=== PATIENT | female | born 1980 | race Caucasian/White ===

== ENCOUNTER 2016-09-14 14:00 | Emergency (ER) | payer SELFPAY ==
[2016-09-14 14:09] VITALS: BP 108/85
--- NOTE | 2016-09-14 15:25 | UC ---
Eye Complaint HPI - HPI Summary HPI Summary: PATIENT PRESENTS TO WITH CC OF BILATERAL REDNESS, PURULENT DRAINAGE AND ITCHING X 2 DAYS. SHE BEGAN TO FEEL SYMPTOMS YESTERDAY, TOOK OUT HER CONTACTS, TOOK AN ANTIHISTAMINE AND USED WARM WASH CLOTHS OVER THE EYES. SHE AWOKE THIS MORNING WITH WORSENING DRAINAGE, ITCHING AND SLIGHT DISCOMFORT. SHE ALSO NOTES TO SINUS PRESSURE AND PAIN X 4 DAYS WHICH HAS NOT BEEN IMPROVING WITH NASAL SALINE SPRAYS. SHE DEVELOPS SINUSITIS YEARLY AND HAS PREVIOUSLY TAKEN ANTIBIOTICS FOR RELIEF. SHE DENIES FEVERS, SWEATS OR CHILLS. SHE IS OTHERWISE HEALTHY. SHE DENIES SICK CONTACTS. - History of Current Complaint Chief Complaint: UCEye Stated Complaint: EYE ISSUE Time Seen by Provider: 09/14/16 14:30 Hx Obtained From: Patient Hx Last Menstrual Period: iud ?: No Onset/Duration: Sudden Onset Timing: Constant Severity Initially: Moderate Severity Currently: Moderate Pain Intensity: 5 Pain Scale Used: 0-10 Numeric Location of Injury: Conjunctiva Character: Dull Aggravating Factor(s): Contact Lens Alleviating Factor(s): Nothing Associated Signs And Symptoms: Positive: Drainage (Purulent) - Risk Factors Penetrating Injury Risk Factor: Negative Globe Rupture Risk Factors: Negative Acute Glaucoma Risk Factors: Eye Inflammation Optic Artery Occlusion Risk Factors: Negative - Allergies/Home Medications Allergies/Adverse Reactions: Allergies Allergy/AdvReac Type Severity Reaction Status Date / Time No Known Allergies Allergy Verified 02/17/14 21:46 PMH/Surg Hx/FS Hx/Imm Hx Previously Healthy: Yes Endocrine History Of: Denies: Diabetes, Thyroid Disease Cardiovascular History Of: Denies: Cardiac Disorders, Hypertension Respiratory History Of: Denies: COPD, Asthma GI/ History Of: Denies: Ulcer - Surgical History Surgical History: None - Family History Known Family History: Positive: Unknown - Social History Occupation: Student Lives: With Family Alcohol Use: Occasionally Substance Use Type: None Smoking Status (MU): Light Every Day Tobacco Smoker Have You Smoked in the Last Year: No Review of Systems Constitutional: Negative Skin: Negative Eyes: Drainage, Eye Redness ENT: Nasal Discharge, Other - SINUS PRESSURE Respiratory: Negative Cardiovascular: Negative Neurovascular: Negative Musculoskeletal: Negative Neurological: Negative All Other Systems Reviewed And Are Negative: Yes Physical Exam Triage Information Reviewed: Yes Appearance: Well-Nourished, Ill-Appearing Vital Signs: Initial Vital Signs Temp 98 F 09/14/16 14:06 Pulse 105 09/14/16 14:06 Resp 18 09/14/16 14:06 BP 108/85 09/14/16 14:06 Pulse Ox 100 09/14/16 14:06 Vital Signs Reviewed: Yes Eyes: Positive: Conjunctiva Inflamed, Discharge - PURULENT ENT: Positive: Nasal congestion, Nasal drainage, Other: - PRESSURE AND DISCOMFORT ON PALPATION OVER MAXILLARY SINUS Neck exam: Normal Neck: Positive: Supple, No Lymphadenopathy Respiratory Exam: Normal Respiratory: Positive: Chest non-tender, Lungs clear Cardiovascular Exam: Normal Cardiovascular: Positive: RRR Neurological Exam: Normal Neurological: Positive: Alert Psychological: Positive: Normal Response To Family, Age Appropriate Behavior Skin Exam: Normal Eye Complaint Course/Dx - Course Course Of Treatment: BILATERAL CONJUNCTIVITIS WITH PURULENT DRAINAGE X 2 DAYS. MAXILLARY SINUS PRESSURE AND PAIN X 4 DAYS WITH LITTLE IMPROVEMENT WITH NASAL SALINE SPRAYS. PROVIDER ENCOURAGED NETI POT AND CONTIUATION OF SALINE SPRAYS. EDUCATED PATIENT ON ANTIBIOTIC USE AND OVERUSE. D/T PREVIOUS SINUS INFECTIONS AND PRESSURE AND PAIN OVER MAXILLARY SINUS, WILL GIVE AUGMENTIN X 5 DAYS. BILATERAL CONJUNCTIVITIS LIKELY BACTERIAL D/T DRAIANGE AND WILL PRESCRIBED CIPRO DROPS BECAUSE PATIENT IS A CONTACT LENS WEARER. SHE IS OK WITH PLAN AND OK FOR DISCHARGE. FOLLOW UP WITH PCP. DENIES FEVER, SWEATS OR CHILLS. PROBIOTIC RECOMMENDED ON OPPOSITE SCHEDULE OF ANTIBIOTIC TO PREVENT SECONDARY INFECTIONS. CONTINUE ON ANTIHISTAMINE. USE WARM WASH CLOTHS FOR DRAINAGE. - Differential Dx/Diagnosis Differential Diagnosis/HQI/PQRI: Conjunctivitis, Periorbital Cellulitis, Orbital Cellulitis Provider Diagnoses: BACTERIAL CONJUNCTIVITIS; SINUSITIS Discharge - Discharge Plan Condition: Stable Disposition: HOME Prescriptions: Amoxicillin/Clavulanate TAB* [Augmentin TAB 875*] 875 mg PO BID #10 tab Ciprofloxacin 0.3% OPTH.AMY* [Cipro 0.3% Opth*] 1 drop BOTH EYES SEE INSTRUCTIONS #1 btl Patient Education Materials: Conjunctivitis (ED) Referrals: No Primary Care Phys,NOPCP [Primary Care Provider] - Additional Instructions: YOU ARE CONTAGIOUS FOR 48 HOURS. WASH HANDS FREQUENTLY USE WARM WASH CLOTH IN THE MORNING AND BEFORE BED MAY USE A COLD WASH CLOTH DURING THE DAY CONTINUE WITH ALLERGY MEDICATION CONTINUE WITH NASAL SPRAYS OR USE NETI POT HUMIDIFIER IN THE HOME WILL HELP BREAK UP MUCOUS AND AID WITH CONGESTION USE ANTIBIOTICS PRESCRIBED. THROW AWAY CONTACTS. WHEN ANTIBIOTICS ARE COMPLETED, YOU MAY RESUME CONTACT USE WITH NEW SET. IF YOU DEVELOP AND VISUAL DISTURBANCES, OR SYMPTOMS ARE NOT IMPROVING WITH MEDICATION, COME BACK TO UC.
== END 2016-09-14 15:20 | disposition home or self-care (01) ==
LOC: UCEAST 14:00
DX: H10.33 Unspecified acute conjunctivitis, bilateral (principal); J32.9 Chronic sinusitis, unspecified; F17.210 Nicotine dependence, cigarettes, uncomplicated
CPT/HCPCS: 99211; G0463

== ENCOUNTER 2017-12-18 19:35 | Emergency (ER) | payer BC ==
--- NOTE | 2017-12-18 19:55 | UC ---
Throat Pain/Nasal Agustin HPI - HPI Summary HPI Summary: 37 yo female presents with sore throat. She tells me that she was feeling fine last night. This morning woke up with mild throat pain and felt scratchy. As the day progressed her sore throat intensified and her tonsils enlarged. She now has severe pain and has difficulty swallowing due to pain. 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 Denies fever, chills, SOB, chest pain, or rash. - History of Current Complaint Stated Complaint: DIFFICULTY SWALLOWING,SWOLLEN TONSILS Time Seen by Provider: 12/18/17 19:55 Hx Obtained From: Patient Hx Last Menstrual Period: iud Onset/Duration: Sudden Onset Severity: Moderate Pain Intensity: 5 Pain Scale Used: 0-10 Numeric - Allergies/Home Medications Allergies/Adverse Reactions: Allergies Allergy/AdvReac Type Severity Reaction Status Date / Time No Known Allergies Allergy Verified 12/18/17 20:08 PMH/Surg Hx/FS Hx/Imm Hx - Additional Past Medical History Additional PMH: None Previously Healthy: Yes - Surgical History Surgical History: None - Family History Known Family History: Positive: Unknown - Social History Occupation: Employed Full-time Lives: With Family Alcohol Use: Occasionally Substance Use Type: None Smoking Status (MU): Light Every Day Tobacco Smoker Have You Smoked in the Last Year: No Review of Systems Constitutional: Negative Skin: Negative Eyes: Negative ENT: Sore Throat Respiratory: Negative Cardiovascular: Negative Gastrointestinal: Negative Neurovascular: Negative Neurological: Negative Psychological: Negative All Other Systems Reviewed And Are Negative: Yes Physical Exam - Summary Physical Exam Summary: GENERAL: NAD. WDWN. No pain distress. SKIN: No rashes, sores, lesions, or open wounds. HEENT: Head: AT/NC Eyes: Conjunctiva clear without inflammation or discharge. Ears: Hearing grossly normal. TMs intact, no bulging, erythema, or edema. Nose: Nasal mucosa pink and moist. NTTP maxillary and frontal sinus. Throat: Posterior oropharynx moderate erythema and 3+ tonsillar enlargement. Moderate exudates on left tonsil. Uvula midline. No hoarse voice or muffled voice. NECK: Supple. Moderate TTP and tonsillar LAD. CHEST: CTAB. No r/r/w. No accessory muscle use. Breathing comfortably and in no distress. CV: RRR. Without m/r/g. Pulses intact. Cap refill <2seconds NEURO: Alert. CN II-XII grossly intact. PSYCH: Age appropriate behavior. Triage Information Reviewed: Yes Vital Signs: Vital Signs: Temp Pulse Resp BP Pulse Ox 98 F 86 18 140/71 97 12/18/17 20:08 12/18/17 20:08 12/18/17 20:08 12/18/17 20:08 12/18/17 20:08 Laboratory Tests 12/18/17 19:42 Group A Strep Rapid Positive A Vital Signs Reviewed: Yes Throat Pain/Nasal Course/Dx - Course Course Of Treatment: Strep positive. Given her sudden onset of symptms and degree of discomfort, she was given 1gm of ceftriaxone and 6mg of dexamethasone in the clinic. Rx for Augmentin and prednisone. Strongly advised pt that if she sees no improvement tomorrow or if her symptoms worsen - she should be evaluated in the ER. She was agreeable to this plan. - Differential Dx/Diagnosis Provider Diagnoses: Strep pharyngitis Discharge - Sign-Out/Discharge Documenting (check all that apply): Patient Departure - Discharge Plan Condition: Stable Disposition: HOME Prescriptions: Amoxicillin/Clavulanate TAB* [Augmentin TAB 875*] 875 mg PO BID #20 tab predniSONE TAB* [Deltasone 20 MG TAB*] 60 mg PO DAILY #15 tab Patient Education Materials: Strep Throat (DC) Referrals: Ernesto Diaz MD [Primary Care Provider] - Additional Instructions: If you develop a fever, shortness of breath, chest pain, new or worsening symptoms - please call your PCP or go to the ED. Your blood pressure was high at todays visit. Please see your primary provider within 4 weeks for recheck and re-evaluation. 1) If your symptoms worsen or do not improve by tomorrow evening - please go to the ED - Billing Disposition and Condition Condition: STABLE Disposition: Home
[2017-12-18] MEDS ORDERED: Dexamethasone TAB* 4 MG PO ONE (20:10)
[2017-12-18] MEDS ORDERED: cefTRIAXone VIAL(*) 1,000 MG VIAL IM ONE (20:11)
[2017-12-18] MEDS ORDERED: Lidocaine 1%* 5 ML VIAL INJ ONE (20:11)
[2017-12-18 20:13] VITALS: BP 140/71
== END 2017-12-18 20:50 | disposition home or self-care (01) ==
LOC: UCEAST 19:35
DX: J02.0 Streptococcal pharyngitis (principal); F17.200 Nicotine dependence, unspecified, uncomplicated
CPT/HCPCS: 87651; 96372; 99212; G0463; J0696; J8540

== ENCOUNTER 2018-04-15 17:54 | Emergency (ER) | payer BC ==
--- NOTE | 2018-04-15 19:34 | UC ---
Hand/Wrist HPI - HPI Summary HPI Summary: 37-year-old female comes to clinic with a chief complaint of right hand injury. Yesterday she fell off a piece of furniture and struck the ulnar aspect of her left hand. Had immediate pain primarily in the fifth finger but she also has pain in the fifth metacarpal. Pain is worse with movement of the finger. Keeping it dependent also causes more pain keeping it upright decreases the pain. She's been taking some ibuprofen that also helps with the pain. No weakness or numbness. - History Of Current Complaint Stated Complaint: HAND INJURY Time Seen by Provider: 04/15/18 19:22 Hx Last Menstrual Period: iud - Allergies/Home Medications Allergies/Adverse Reactions: Allergies Allergy/AdvReac Type Severity Reaction Status Date / Time No Known Allergies Allergy Verified 04/15/18 19:39 Home Medications: Home Medications Ibuprofen TAB* [Motrin TAB* 400 MG] 1 tab PO Q6HR PRN 04/15/18 [History Confirmed 04/15/18] PMH/Surg Hx/FS Hx/Imm Hx Previously Healthy: Yes - Surgical History Surgical History: None - Family History Known Family History: Positive: Unknown - Social History Alcohol Use: Occasionally Substance Use Type: None Smoking Status (MU): Light Every Day Tobacco Smoker Have You Smoked in the Last Year: No Review of Systems All Other Systems Reviewed And Are Negative: Yes Skin: Positive: Bruising - LEFT 5TH FINGER Eyes: Positive: Negative ENT: Positive: Negative Respiratory: Positive: Negative Cardiovascular: Positive: Negative Gastrointestinal: Positive: Negative Motor: Positive: Negative Neurovascular: Positive: Negative Musculoskeletal: Positive: Other: - SEE HPI Neurological: Positive: Negative Psychological: Positive: Negative Is Patient Immunocompromised?: No Physical Exam Triage Information Reviewed: Yes Appearance: Well-Appearing, No Pain Distress, Well-Nourished Vital Signs Reviewed: Yes Eye Exam: Normal Eyes: Positive: Conjunctiva Clear Neck exam: Normal Neck: Positive: Supple Respiratory: Positive: No respiratory distress Musculoskeletal: Positive: Other: - The left fifth finger is tender to palpation as is the left fifth metacarpal. There is decreased range of motion based on pain. As no obvious deformity. Normal capillary refill no sensation deficit. Neurological Exam: Normal Neurological: Positive: Alert Psychological Exam: Normal Skin: Positive: Other - ECCYMOSIS LEFT 5TH FINGER Hand/Wrist Course/Dx - Course Course Of Treatment: I discussed the x-rays with the patient. I do not see a fracture. Radiologist reading is pending. Nursing splinted left fourth and fifth fingers and included the MCP. Neurovascularly intact after splinting. Plan will be ibuprofen rests and immobilization. If not improving follow-up will be with orthopedics. - Differential Dx/Diagnosis Provider Diagnosis: Contusion of left hand, Sprain of left little finger Discharge - Sign-Out/Discharge Documenting (check all that apply): Patient Departure All imaging exams completed and their final reports reviewed: No - Discharge Plan Condition: Stable Disposition: HOME Patient Education Materials: Finger Sprain (ED), Contusion in Adults (ED) Referrals: Ernesto Diaz MD [Primary Care Provider] - Andrea Alanis MD [Medical Doctor] - Additional Instructions: FOLLOW UP WITH ORTHOPEDICS IF NOT COMPLETELY IMPROVED. GET RECHECKED FOR ANY WORSENING OF YOUR CONDITION OR QUESTIONS OR CONCERNS. - Billing Disposition and Condition Condition: STABLE Disposition: Home
[2018-04-15 19:38] VITALS: BP 143/80
[2018-04-15] MEDS ORDERED: Acetaminophen TAB* 325 MG PO ONE (20:08)
--- NOTE | 2018-04-16 10:37 | UC ---
- Progress Note Progress Note: Radiology report reviewed. No fracture or acute process. No change in management. Course/Dx - Diagnoses Provider Diagnoses: Contusion of left hand, Sprain of left little finger Discharge - Sign-Out/Discharge Documenting (check all that apply): Post-Discharge Follow Up All imaging exams completed and their final reports reviewed: Yes - Discharge Plan Condition: Stable Disposition: HOME Patient Education Materials: Contusion in Adults (ED), Finger Sprain (ED) Forms: *Work Release Referrals: Ernesto Diaz MD [Primary Care Provider] - Andrea Alanis MD [Medical Doctor] - Additional Instructions: FOLLOW UP WITH ORTHOPEDICS IF NOT COMPLETELY IMPROVED. GET RECHECKED FOR ANY WORSENING OF YOUR CONDITION OR QUESTIONS OR CONCERNS. - Billing Disposition and Condition Condition: STABLE Disposition: Home
== END 2018-04-15 20:30 | disposition home or self-care (01) ==
LOC: UCEAST 17:54
DX: S60.222A Contusion of left hand, initial encounter (principal); S63.617A Unspecified sprain of left little finger, initial encounter; F17.210 Nicotine dependence, cigarettes, uncomplicated; W08.XXXA Fall from other furniture, initial encounter; Y92.9 Unspecified place or not applicable
CPT/HCPCS: 99213; A9270-GY; G0463

== ENCOUNTER 2019-03-08 10:15 | Emergency (ER) | payer BC ==
--- NOTE | 2019-03-08 12:21 | UC ---
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 Pain worse with moving, bending, twisting. Had Prednisone at home - improved symptoms, however onyl a short course and returned after stopping medication. mild relief with OTCs- motrin. no other complaints. - History of Current Complaint Chief Complaint: UCBackPain Stated Complaint: BACK INJURY Time Seen by Provider: 03/08/19 11:51 Hx Obtained From: Patient Hx Last Menstrual Period: iud ?: No Onset/Duration: Sudden Onset, Lasting Days Timing: Constant Severity Initially: Severe Severity Currently: Moderate Pain Intensity: 8 Pain Scale Used: 0-10 Numeric Back Pain: Is Discrete @ - lower back Character: Sharp, Aching, Throbbing, Spasmodic, Stiffness Aggravating Factor(s): Lifting, Bending Alleviating Factor(s): Rest - difficulty finding comfortable position Associated Signs And Symptoms: Positive: Negative - Allergies/Home Medications Allergies/Adverse Reactions: Allergies Allergy/AdvReac Type Severity Reaction Status Date / Time No Known Allergies Allergy Verified 03/08/19 10:29 PMH/Surg Hx/FS Hx/Imm Hx Previously Healthy: Yes - Surgical History Surgical History: None - Family History Known Family History: Positive: Unknown, Non-Contributory - Social History Occupation: Employed Full-time - nurse Alcohol Use: Occasionally Substance Use Type: None Smoking Status (MU): Light Every Day Tobacco Smoker Have You Smoked in the Last Year: No Review of Systems All Other Systems Reviewed And Are Negative: Yes Constitutional: Positive: Negative Musculoskeletal: Positive: Arthralgia, Decreased ROM, Myalgia. Negative: Calf Tenderness, Edema Neurological: Positive: Negative Is Patient Immunocompromised?: No Physical Exam Triage Information Reviewed: Yes Appearance: Well-Appearing, Well-Nourished, Pain Distress - minimal at rest, moderate iwth movements Vital Signs: Initial Vital Signs Temp 97.3 F 03/08/19 10:25 Pulse 84 03/08/19 10:25 Resp 18 03/08/19 10:25 BP 156/101 03/08/19 10:25 Pulse Ox 100 03/08/19 10:25 Vital Signs Reviewed: Yes Eyes: Positive: Conjunctiva Clear ENT: Positive: Hearing grossly normal Musculoskeletal: Positive: Other: - Lower back- decreased ROM due to pain with FF. SIde to side intact, mild pain with extension. TTP over paraspinal muscles b/l lumbar spine, minimal SI joint tenderness. TP pulses 2+ b/l. neg homans b/l. no cervical , thoracic tenderness, full ROM cervical. Neurological: Positive: Alert, Muscle Tone Normal, Other: - patellar reflexes 2 + b/l Psychological Exam: Normal Skin Exam: Normal Back Pain Course/Dx - Course Course Of Treatment: Lower back strain: - Prednisone to decrease inflammation/ pain per taper, may stop if side effects too severe - Valium as needed fo muscle spasms at night - Percocet PRN for break through pain - Decrease movements/ no lifting, pulling/ pushing x 2-3 days to rest back. Gentle ROM exercises - Differential Dx/Diagnosis Differential Diagnosis/HQI/PQRI: Strain, Sprain Provider Diagnosis: Strain of tendon of lower back Discharge ED - Sign-Out/Discharge Documenting (check all that apply): Patient Departure All imaging exams completed and their final reports reviewed: No Studies - Discharge Plan Condition: Good Disposition: HOME Prescriptions: Diazepam TAB(*) [Valium TAB(*)] 5 mg PO BEDTIME PRN #3 tab MDD 1 PRN Reason: muscle spasms Oxycodone HCl/Acetaminophen [Percocet 5-325 mg Tablet] 1 each PO Q6H PRN #10 tablet MDD 4 PRN Reason: Pain - Moderate predniSONE TAB* [Deltasone 10 MG TAB*] 10 mg PO .SEE TAP #21 tab Patient Education Materials: Low Back Strain (ED), Lower Back Exercises (ED) Forms: *Work Release Referrals: Ernesto Diaz MD [Primary Care Provider] - Additional Instructions: - Prednisone to decrease inflammation/ pain per taper, may stop if side effects too severe - Valium as needed fo muscle spasms at night - Percocet PRN for break through pain - Decrease movements/ no lifting, pulling/ pushing x 2-3 days to rest back. Gentle ROM exercises - Billing Disposition and Condition Condition: GOOD Disposition: Home
[2019-03-08 12:35] VITALS: BP 140/90
== END 2019-03-08 12:23 | disposition home or self-care (01) ==
LOC: UCEAST 10:15
DX: S39.012A Strain of muscle, fascia and tendon of lower back, initial encounter (principal); X58.XXXA Exposure to other specified factors, initial encounter; Y92.9 Unspecified place or not applicable
CPT/HCPCS: 99212; G0463